=== PATIENT | male | born 1955 | race Caucasian/White ===

== ENCOUNTER 2025-06-09 09:22 | Emergency (ER) | payer MEDICARE | END 2025-06-09 10:18 | disposition home or self-care (01) | LOC: DL.ED 09:22 | DX: T83.091A Other mechanical complication of indwelling urethral catheter, initial encounter (principal); Y84.6 Urinary catheterization as the cause of abnormal reaction of the patient, or of later complication, without mention of misadventure at the time of the procedure | CPT/HCPCS: 51705; 99283 ==